=== PATIENT | male | born 1945 | race Caucasian/White ===

== ENCOUNTER 2024-10-28 06:40 | Emergency (ER) | payer OTHER ==
[~2024-10-28] VITALS: Ht 182.9 cm; Wt 113.4 kg
[2024-10-28] MEDS ORDERED: GLIP5TAB13 PO (06:46)
[2024-10-28] MEDS ORDERED: INSU100I26 SQ (06:46)
[2024-10-28] MEDS: DEXTROSE 50% 50 ML DISP.SYRIN IV ONE (06:53)
[2024-10-28 06:59] LABS: PLATELET COUNT (AUTO) 215 K/uL (152-348); RED BLOOD CELL COUNT(AUTO) 4.49 MIL/uL (4.06-5.63); RED CELL DISTRIBUTION WIDTH 15.7 % (12.1-16.2); WHITE BLOOD COUNT (AUTO) 9.3 K/uL (3.6-10.2)
[2024-10-28 07:15] LABS: ETHANOL < 3 MG/DL (0-10)
[2024-10-28 07:19] LABS: ASPARTATE AMINOTRANSFERASE 27 U/L (15-37); CREATININE 1.5 mg/dL (0.6-1.3); SODIUM SERUM 147 mmol/L (136-145); TOTAL PROTEIN, SERUM 7.0 g/dL (6.4-8.2); UREA NITROGEN, BLOOD 20 mg/dL (7-18)
[2024-10-28 08:00] LABS: *BILIRUBIN,URIN NEGATIVE (NEGATIVE); *CLARITY,URINE CLEAR (CLEAR); *COLOR,URINE YELLOW (YELLOW); *KETONES,URINE NEGATIVE (NEGATIVE); *UROBILINOGEN,URINE 0.2 E.U./dl (NORMAL); LEUKOCYTE ESTERASE ,URINE NEGATIVE (NEGATIVE); NITRITE, URINE NEGATIVE (NEGATIVE)
[2024-10-28 08:01] LABS: *BLOOD, URINE TRACE (NEGATIVE); *PROTEIN,URINE 3+ (NEGATIVE); UGLUCOSE 3+ (NEGATIVE)
[2024-10-28 08:12] LABS: *AMPHETAMINE, URINE NEGATIVE (NEGATIVE); *BARBITURATE, URINE NEGATIVE (NEGATIVE); *BENZODIAZEPINE, URINE NEGATIVE (NEGATIVE); *CANNABINOID, URINE NEGATIVE (NEGATIVE); *COCCAINE, URINE NEGATIVE (NEGATIVE); *OPIATE, URINE NEGATIVE (NEGATIVE); *PHENCYCLIDINE SCREEN,URINE NEGATIVE (NEGATIVE); FENTANYL, URINE NEGATIVE (NEGATIVE)
[2024-10-28 08:27] VITALS: O2SAT 96
== END 2024-10-28 11:01 | disposition short-term general hospital (02) ==
LOC: ER 06:55
DX: E11.649 Type 2 diabetes mellitus with hypoglycemia without coma (principal); R41.82 Altered mental status, unspecified; R00.1 Bradycardia, unspecified; Z79.4 Long term (current) use of insulin; Z79.899 Other long term (current) drug therapy
CPT/HCPCS: 80076; 80048; 81001; 82140; 82962 ×4; 84443; 85025; 36415; 93005; 99285; 80299; 80320; 80307; J3490; A4606; A4663; G0480